=== PATIENT | male | born 1960 | race American Indian/Alaskan Native ===

== ENCOUNTER 2018-10-16 12:50 | Outpatient (CLI) | payer OTHER ==
--- NOTE | 2018-10-16 14:25 | XRay Report ---
LUMBOSACRAL SPINE, 5 VIEWS INDICATION: LOWER BACK PAIN (M54.5). Chronic low back pain, no injury. COMPARISON: None. IMPRESSION: Normal bone mineralization. There is mild straightening of the normal lordosis. No evide nce for compression deformity, bone lesion or subluxation. 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 There is moderate diffuse hypertrophic facet arthropathy. The oblique images demonstrat e no evidence for pars defect or bony narrowing of the neural foramen. The SI joints are unremarkable . Signer Name: Bienvenido Bowie Jr, MD Signed: 10/16/2018 2:21 PM Workstation Name: [id number]
== END 2018-10-16 12:51 | disposition home or self-care (01) ==
LOC: XRAY 12:50
PROVIDERS: ATTEND Family Medicine
DX: M47.817 Spondylosis without myelopathy or radiculopathy, lumbosacral region (principal)
CPT/HCPCS: 72110